=== PATIENT | male | born 1995 | race Two or more races ===

== ENCOUNTER 2016-07-26 18:34 | Emergency (ER) | payer OTHER ==
[2016-07-26] MEDS ORDERED: DIPH/PERTUSS(ACELL)/TETANUS VAC/PF 0.5 ML SYR (>=10YO) IM ONE (20:30)
--- NOTE | 2016-07-26 20:30 | ER Document Report ---
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 Tetanus not current. I have greeted and performed a rapid initial assessment of this patient. A comprehensive ED assessment, evaluation of the patient, analysis of test results , and completion of the medical decision making process will be conducted by additional ED providers. - Related Data Allergies/Adverse Reactions: No Known Allergies Allergy (Verified 07/26/16 20:27) Physical Exam - Vital signs Vitals: Temp Pulse Resp BP Pulse Ox 98.0 F 56 L 20 140/62 H 100 07/26/16 19:11 07/26/16 19:11 07/26/16 19:11 07/26/16 19:11 07/26/16 19:11 Course - Vital Signs Vital signs: Temp Pulse Resp BP Pulse Ox 98.0 F 56 L 20 140/62 H 100 07/26/16 19:11 07/26/16 19:11 07/26/16 19:11 07/26/16 19:11 07/26/16 19:11
[2016-07-26] MEDS ORDERED: LIDOCAINE 1% INJ-PF (10 MG/ML) 30 ML SDV INJ ONE (22:25)
[2016-07-26] MEDS ORDERED: HYDROCODONE/ACETAMINOPHEN 5-325 MG TABLET PO ONE (22:28)
--- NOTE | 2016-07-26 22:28 | ER Document Report ---
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 Patient cut his right thumb on the lid. Associated Symptoms: Other - Thumb laceration Exacerbated by: Movement Relieved by: Denies Similar symptoms previously: Yes Recently seen / treated by doctor: No - ROS ROS below otherwise negative: Yes Systems Reviewed and Negative: Yes All other systems reviewed and negative - CONSTITUTIONAL Constitutional: DENIES: Fever - MUSCULOSKELETAL Musculoskeletal: REPORTS: Extremity pain - Right thumb - DERM Skin Color: Normal Skin Problems: Laceration Past Medical History - General Information source: Patient - Social History Smoking Status: Never Smoker Chew tobacco use (# tins/day): No Frequency of alcohol use: Occasional Drug Abuse: None Occupation: food service attendant Lives with: Family Family History: Reviewed & Not Pertinent Patient has suicidal ideation: No Patient has homicidal ideation: No - Medical History Medical History: Negative Renal/ Medical History: Denies: Hx Peritoneal Dialysis Surgical Hx: Negative Vertical Provider Document - CONSTITUTIONAL Agree With Documented VS: Yes Exam Limitations: No Limitations General Appearance: WD/WN, No Apparent Distress - INFECTION CONTROL TRAVEL OUTSIDE OF THE [place] IN LAST 30 DAYS: No - HEENT HEENT: Atraumatic, Normocephalic - NECK Neck: Normal Inspection - RESPIRATORY Respiratory: No Respiratory Distress O2 Sat by Pulse Oximetry: 100 - CARDIOVASCULAR Pulses: Normal: Radial - MUSCULOSKELETAL/EXTREMETIES Musculoskeletal/Extremeties: MAEW, FROM - NEURO Level of Consciousness: Awake, Alert, Appropriate Motor/Sensory: No Motor Deficit - DERM Integumentary: Warm, Dry, Laceration - Laceration to the pad of right thumb, no active bleeding Course - Vital Signs Vital signs: Temp Pulse Resp BP Pulse Ox 98.0 F 56 L 20 140/62 H 100 07/26/16 19:11 07/26/16 19:11 07/26/16 19:11 07/26/16 19:11 07/26/16 19:11 Procedures - Laceration/Wound Repair Right Thumb Wound length (cm): 2.5 Wound's Depth, Shape: Irregular Laceration pre-procedure: Chloraprep applied Anesthetic type: 1% Lidocaine Wound explored: Clean, No foreign body removed Wound Repaired With: Sutures Suture Size/Type: 5:0, Nylon Number of Sutures: 8 Layer Closure?: No Post-procedure wound care: Sterile dressing applied Post-procedure NV exam normal: Yes Complications: No Discharge - Discharge Clinical Impression: Thumb laceration Qualifiers: Encounter type: initial encounter Laterality: right Qualified Code(s): S61.011A - Laceration without foreign body of right thumb without damage to nail , initial encounter Condition: Stable Disposition: HOME, SELF-CARE Instructions: Oral Narcotic Medication ([facility]), Tetanus Immunization Given ([facility]) , Laceration Care ([facility]), Dressing Instructions for Open Wounds ([facility]) Additional Instructions: Return immediately for any new or worsening symptoms Followup with your primary care provider, call tomorrow to make a followup appointment Suture removal in 10 days Follow-up with your Workmen's Compensation provider tomorrow Prescriptions: Hydrocodone/Acetaminophen [[place] 5-325 Tablet] 1 each PO Q4 PRN #10 tablet PRN Reason: Forms: Return to Work Referrals: [facility] [Provider Group] - Follow up as needed
[2016-07-26 23:55] VITALS: BP 136/66
== END 2016-07-26 23:40 | disposition home or self-care (01) ==
LOC: EDBD → ER 18:34
PROC: 0HQFXZZ Repair Right Hand Skin, External Approach (ICD-10-PCS; principal; 2016-07-26)
DX: S61.011A Laceration without foreign body of right thumb without damage to nail, initial encounter (principal); W45.8XXA Other foreign body or object entering through skin, initial encounter; Y93.89 Activity, other specified; Y99.0 Civilian activity done for income or pay; M79.644 Pain in right finger(s)
CPT/HCPCS: 99282; 90471; 90715; 12001; J3490

== ENCOUNTER 2016-10-13 10:52 | Emergency (ER) | payer OTHER ==
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
[2016-10-13] MEDS ORDERED: ONDANSETRON HCL INJ/PF 4 MG/2 ML SDV IV ONE (11:23)
[2016-10-13] MEDS ORDERED: MORPHINE SULFATE 10 MG/ML INJ IV ONE (11:23)
[2016-10-13 12:09] LABS: ABSOLUTE EOSINOPHILS # (AUTO) 0.3 10^3/uL (0.0-0.6); ABSOLUTE LYMPHOCYTES (AUTO) 1.7 10^3/uL (0.5-4.7); ABSOLUTE MONOCYTES (AUTO) 0.6 10^3/uL (0.1-1.4); ABSOLUTE NEUT (AUTO) 3.5 10^3/uL (1.7-8.2); BASOPHILS % (AUTO) 0.6 % (0-2); EOSINOPHILS % (AUTO) 4.9 % (0-6); HEMATOCRIT 44.4 % (37.9-51.0); HEMOGLOBIN 14.9 g/dL (13.5-17.0); HGB HCT DIFFERENCE 0.3; LYMPHOCYTES % (AUTO) 27.6 % (13-45); MEAN CORPUSCULAR HGB CONC 33.5 g/dL (32.0-36.0); MEAN CORPUSCULAR VOLUME 90 fl (80-97); RED BLOOD COUNT 4.95 10^6/uL (4.35-5.55); RED CELL DISTRIBUTION WIDTH 13.4 % (11.5-14.0); SEGMENTED NEUTROPHILS % (AUTO) 56.9 % (42-78); WHITE BLOOD COUNT 6.1 10^3/uL (4.0-10.5)
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
[2016-10-13 12:32] LABS: ALANINE AMINOTRANSFERASE 28 U/L (21-72); ALBUMIN 4.4 g/dL (3.5-5.0); ALKALINE PHOSPHATASE 77 U/L (38-126); ANION GAP 12 (5-19); ASPARTATE AMINO TRANSFERASE 24 U/L (17-59); BILIRUBIN,DIRECT 0.3 mg/dL (0.0-0.4); BILIRUBIN,TOTAL 0.6 mg/dL (0.2-1.3); BLOOD UREA NITROGEN 21 mg/dL (7-20); CARBON DIOXIDE 29 mmol/L (22-30); CHLORIDE 102 mmol/L (98-107); CREATININE RESULT 1.24 mg/dL (0.52-1.25); GLUCOSE 82 mg/dL (75-110); SODIUM 142.6 mmol/L (137-145); TOTAL PROTEIN 7.1 g/dL (6.3-8.2)
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
[2016-10-13] MEDS ORDERED: CEFTRIAXONE INJ 500 MG VIAL IM ONE (12:42)
[2016-10-13] MEDS ORDERED: LIDOCAINE 1% INJ-PF (10 MG/ML) 30 ML SDV INFIL ONE (12:42)
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
[2016-10-13 13:03] LABS: APPEARANCE,URINE CLEAR; BILIRUBIN,URINE NEGATIVE (NEGATIVE); GLUCOSE, URINE NEGATIVE (NEGATIVE); KETONES,URINE NEGATIVE (NEGATIVE); LEUKOCYTE ESTERASE,URINE NEGATIVE (NEGATIVE); NITRITE,URINE NEGATIVE (NEGATIVE); PROTEIN,URINE NEGATIVE (NEGATIVE); URINE SPECIFIC GRAVITY 1.035; UROBILINOGEN,URINE NEGATIVE mg/dL (<2.0)
[2016-10-13 13:53] LABS: ADD HIVPANEL? NO; HIV (1 AND 2) ANTIBODY NEGATIVE (NEGATIVE)
[2016-10-13] MEDS ORDERED: AZITHROMYCIN 250 MG TABLET PO ONE (14:00)
[2016-10-13 14:51] VITALS: BP 113/50
[2016-10-13 16:08] LABS: CHLAM PCR DETECTED (NOT DETECT)
== END 2016-10-13 14:51 | disposition home or self-care (01) ==
LOC: ER 10:52
DX: S20.212A Contusion of left front wall of thorax, initial encounter (principal); S39.92XA Unspecified injury of lower back, initial encounter; S16.1XXA Strain of muscle, fascia and tendon at neck level, initial encounter; A74.9 Chlamydial infection, unspecified; M54.9 Dorsalgia, unspecified; M54.2 Cervicalgia; R07.89 Other chest pain; R10.10 Upper abdominal pain, unspecified; V87.7XXA Person injured in collision between other specified motor vehicles (traffic), initial encounter
CPT/HCPCS: 99284; 96372; 96374; 96375; 36415; 85025; 86592; 80053; 81001; 86701; 87491; 87591; 71260; 72125; 74177; J3490; J2270; J0696; J2405

== ENCOUNTER 2017-06-13 10:21 | Emergency (ER) | payer OTHER ==
[2017-06-13 10:34] VITALS: BP 119/48
[2017-06-13] MEDS ORDERED: DEXAMETHASONE SOD PHOS INJ 10 MG/1 ML VIAL IM ONE (10:42)
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
== END 2017-06-13 11:20 | disposition home or self-care (01) ==
LOC: ER 10:21
DX: J02.9 Acute pharyngitis, unspecified (principal); J35.1 Hypertrophy of tonsils; J34.89 Other specified disorders of nose and nasal sinuses
CPT/HCPCS: 99283; 96372; 87070; 87880; J1100

== ENCOUNTER 2018-01-20 19:19 | Emergency (ER) | payer OTHER ==
[2018-01-20 19:34] VITALS: BP 133/61
--- NOTE | 2018-01-20 19:59 | ER Document Report ---
ED Dizziness/Weakness - General Chief Complaint: Passed Out Prior to Arrival Stated Complaint: POSSIBLE SYNCOPE Time Seen by Provider: 01/20/18 19:55 Mode of Arrival: Ambulatory Information source: Patient Notes: Chief complaint: Syncope History of complain:( obtained from----patient) 22 years old male was drinking up to a year because he got from his fiance, drank about 6 drinks of hard liquor and briefly tumbled and lost consciousness subsequently was brought to the ED. He is feeling fine now has no symptoms denies any head injury nail denies any headache denies any focal weakness numbness tingling sensation. Denies any neck pain neck stiffness chest pain or abdominal pain. Onset: As above Duration: Just prior to arrival Severity: Mild not applicable Quality: Not applicable Context: As above Exacerbating factor and relieving factors: As above REVIEW OF SYSTEMS: CONSTITUTIONAL : Denies fever, chills, or sweats. Denies recent illness. EENT: Denies eye, ear, throat, or mouth pain or symptoms. Denies nasal or sinus congestion or discharge. Denies throat, tongue, or mouth swelling or difficulty swallowing. CARDIOVASCULAR: Denies chest pain. Denies palpitations or racing or irregular heart beat. Denies ankle edema. RESPIRATORY: Denies cough, cold, or chest congestion. Denies shortness of breath, difficulty breathing, or wheezing. GASTROINTESTINAL: Denies distention. Denies nausea, vomiting, or diarrhea. Denies blood in vomitus, stools, or per rectum. Denies black, tarry stools. Denies constipation. GENITOURINARY: Denies difficulty urinating, painful urination, burning, frequency, blood in urine, or discharge. FEMALE GENITOURINARY: Denies vaginal bleeding, heavy or abnormal periods, irregular periods. Denies vaginal discharge or odor. MUSCULOSKELETAL: Denies back or neck pain or stiffness. Denies joint pain or swelling. SKIN: Denies rash, lesions or sores. HEMATOLOGIC : Denies easy bruising or bleeding. LYMPHATIC: Denies swollen, enlarged glands. NEUROLOGICAL: Denies confusion or altered mental status. Denies passing out or loss of consciousness. Denies dizziness or lightheadedness. Denies headache. Denies weakness or paralysis or loss of use of either side. Denies problems with gait or speech. Denies sensory loss, numbness, or tingling. Denies seizures. PSYCHIATRIC: Denies anxiety or stress. Denies depression, suicidal ideation, or homicidal ideation. ALL OTHER SYSTEMS REVIEWED AND NEGATIVE. PHYSICAL EXAMINATION: GENERAL: Well-appearing, well-nourished and in no acute distress. Alert and oriented 3 HEAD: Atraumatic, normocephalic. EYES: Pupils equal round and reactive to light, extraocular movements intact, conjunctiva are normal. ENT: Nares patent, oropharynx clear without exudates. Moist mucous membranes. NECK: Normal range of motion, supple without lymphadenopathy LUNGS: Breath sounds clear to auscultation bilaterally and equal. No wheezes rales or rhonchi. HEART: Regular rate and rhythm without murmurs ABDOMEN: Soft, nontender, nondistended abdomen. No guarding, no rebound. No masses appreciated. Examination of genitals-deferred Musculoskeletal: Normal range of motion, no pitting or edema. No cyanosis. NEUROLOGICAL: Cranial nerves grossly intact. Normal speech, normal gait. Normal sensory, motor exams PSYCH: Normal mood, normal affect. SKIN: Warm, Dry, normal turgor, no rashes or lesions noted. Dictation was performed using [employer] voice recognition software TRAVEL OUTSIDE OF THE [place] IN LAST 30 DAYS: No - HPI Notes: Dictated - Related Data Allergies/Adverse Reactions: No Known Allergies Allergy (Verified 06/13/17 10:22) Past Medical History - Social History Smoking Status: Current Every Day Smoker Cigarette use (# per day): No Chew tobacco use (# tins/day): No Frequency of alcohol use: Heavy Drug Abuse: None Lives with: Family Family History: Reviewed & Not Pertinent Renal/ Medical History: Denies: Hx Peritoneal Dialysis - Immunizations Hx Diphtheria, Pertussis, Tetanus Vaccination: Yes - given today Review of Systems - Review of Systems Notes: Dictated Physical Exam - Vital signs Vitals: Temp Pulse Resp BP Pulse Ox 97.9 F 77 20 133/61 H 100 01/20/18 19:32 01/20/18 19:32 01/20/18 19:32 01/20/18 19:32 01/20/18 19:32 - Notes Notes: Dictated Course - Vital Signs Vital signs: Temp Pulse Resp BP Pulse Ox 97.9 F 77 20 133/61 H 100 01/20/18 19:32 01/20/18 19:32 01/20/18 19:32 01/20/18 19:32 01/20/18 19:32 Discharge - Discharge Clinical Impression: ETOH abuse, Pre-syncope Condition: Fair Disposition: HOME, SELF-CARE Instructions: Near Syncopal Episode ([facility]), Syncopal Episode ([facility])
== END 2018-01-20 20:10 | disposition home or self-care (01) ==
LOC: ER 19:19
DX: R55 Syncope and collapse (principal); F10.10 Alcohol abuse, uncomplicated; F17.200 Nicotine dependence, unspecified, uncomplicated
CPT/HCPCS: 99284

== ENCOUNTER → 2018-03-14 | Outpatient (CLI) | payer SELFPAY ==
--- NOTE | 2018-03-14 18:35 | RADIOLOGY REPORT (SQ) ---
EXAM DESCRIPTION: MRI LUMBAR SPINE WITHOUT COMPLETED DATE/TIME: 03/14/2018 5:31 pm REASON FOR STUDY: RADICULOPATHY,LUMBAR REGION S83.206A UNSP TEAR OF UNSP MENISCUS, CURRENT INJURY, RIGHT K M54.16 RADICULOPATHY, LUMBAR REGION M54.14 RADICULOPATHY, THORACIC REGION COMPARISON: None. TECHNIQUE: Sagittal and Axial imaging includes T1, T2, STIR and gradient echo sequences. Coronal T2/ HASTE imaging. LIMITATIONS: Motion artifact, particularly on the axial images. FINDINGS: VISUALIZED UPPER ABDOMEN: Limited evaluation. No acute or suspicious findings suggested. SEGMENTATION: No transitional anatomy. The lowest well-developed disc space is labeled L5-S1. ALIGNMENT: Anatomic. VERTEBRAE: Intact. BONE MARROW: Normal. No marrow replacement or reactive changes. DISC SIGNAL: Normal. No significant abnormal signal or loss of height. POSTERIOR ELEMENTS: Generally intact. No pars defect evident. HARDWARE: None in the spine. CORD AND CONUS: Normal in size and signal intensity. Conus at the appropriate level. SOFT TISSUES: No aortic aneurysm seen. No bulky retroperitoneal adenopathy or mass. No paraspinal mas s or fluid. L1-L2: No significant spinal stenosis or exit foraminal stenosis. L2-L3: No significant spinal stenosis or exit foraminal stenosis. L3-L4: No significant spinal stenosis or exit foraminal stenosis. L4-L5: Left side asymmetric disc bulge with increased signal in the posterior annulus. Left lateral recess stenosis. L5-S1: No significant spinal stenosis or exit foraminal stenosis. LOWER THORACIC: Incompletely imaged. No stenosis seen. SACRUM: Visualized upper sacrum intact. OTHER: No other significant findings. IMPRESSION: LEFT-SIDED ASYMMETRIC DISC BULGE AT L4-L5 WITH LEFT LATERAL RECESS STENOSIS. INCREASED SIGNAL IN THE POSTERIOR ANNULUS LIKELY DUE TO AN ANNULAR FISSURE. TECHNICAL DOCUMENTATION: JOB ID: [id number] [employer]- All Rights Reserved Reading location - IP/workstation name: [email or web address]
--- NOTE | 2018-03-14 18:37 | RADIOLOGY REPORT (SQ) ---
EXAM DESCRIPTION: MRI THORACIC SPINE WITHOUT COMPLETED DATE/TIME: 03/14/2018 5:31 pm REASON FOR STUDY: RADICULOPATHY,THORACIC REGION S83.206A UNSP TEAR OF UNSP MENISCUS, CURRENT INJURY , RIGHT K M54.16 RADICULOPATHY, LUMBAR REGION M54.14 RADICULOPATHY, THORACIC REGION COMPARISON: None. TECHNIQUE: Sagittal imaging includes T1, T2, STIR and gradient echo sequences. LIMITATIONS: Study limited due to motion artifact. Axial images not acquired due to patient discomf ort. FINDINGS: LOCALIZER: No worrisome findings. ALIGNMENT: Normal. VERTEBRAE: Intact. BONE MARROW: Normal. No marrow replacement or reactive changes. HARDWARE: None in the spine. CORD: Normal in size and signal intensity. SOFT TISSUES: No soft tissue masses. THORACIC DISCS T1-T12: No significant spinal stenosis or exit foraminal stenosis. LOWER CERVICAL: Incompletely imaged. No significant spinal stenosis or exit foraminal stenosis. UPPER LUMBAR: Incompletely imaged. No significant spinal stenosis or exit foraminal stenosis. OTHER: No other significant finding. IMPRESSION: LIMITED STUDY. NO GROSS ABNORMAL FINDINGS. TECHNICAL DOCUMENTATION: JOB ID: [id number] [employer]- All Rights Reserved Reading location - IP/workstation name: [email or web address]
== END ==
LOC: RAD 16:01
PROVIDERS: ATTEND Physician Assistant
DX: S83.206A Unspecified tear of unspecified meniscus, current injury, right knee, initial encounter (principal); X58.XXXA Exposure to other specified factors, initial encounter; M54.16 Radiculopathy, lumbar region; M54.14 Radiculopathy, thoracic region
CPT/HCPCS: 72146; 72148

== ENCOUNTER 2018-03-22 14:29 | Emergency (ER) | payer OTHER ==
[2018-03-22 15:32] VITALS: BP 130/62
--- NOTE | 2018-03-22 15:40 | ER Document Report ---
HPI - HPI Patient complains to provider of: Right knee pain Onset: Other - 10 days Onset/Duration: Persistent Quality of pain: Achy, Sharp Pain Level: 5 Context: Patient states that he was unloading concrete and his foot got stuck in a wood pallet, patient states that he had back pain and right knee pain. Patient did see his Workmen's Compensation provider and had an MRI performed of the back. Patient states he was supposed to have an MRI of the knee as well but he could not tolerate the pain sitting in the MRI machine for that long. Patient denies any new injury to the knee. Patient states that his brace does not feel comfortable that he was provided with. Patient states that his estate planning attorney advised him to come here because he was having continued knee pain. Patient feels like he is not moving forward with his workman's compensation provider. Associated Symptoms: Other - Right knee pain Exacerbated by: Standing, Movement, Walking Relieved by: Denies Similar symptoms previously: No Recently seen / treated by doctor: Yes - ROS ROS below otherwise negative: Yes Systems Reviewed and Negative: Yes All other systems reviewed and negative - CONSTITUTIONAL Constitutional: DENIES: Fever, Chills - NEURO Neurology: DENIES: Weakness - GASTROINTESTINAL Gastrointestinal: DENIES: Nausea - MUSCULOSKELETAL Musculoskeletal: REPORTS: Extremity pain - R knee - DERM Skin Color: Normal Skin Problems: None Past Medical History - General Information source: Patient - Social History Smoking Status: Never Smoker Chew tobacco use (# tins/day): No Frequency of alcohol use: None Drug Abuse: None Family History: Reviewed & Not Pertinent Patient has suicidal ideation: No Patient has homicidal ideation: No - Medical History Medical History: Negative Renal/ Medical History: Denies: Hx Peritoneal Dialysis Surgical Hx: Negative - Immunizations Hx Diphtheria, Pertussis, Tetanus Vaccination: Yes - given today Vertical Provider Document - CONSTITUTIONAL Agree With Documented VS: Yes Exam Limitations: No Limitations General Appearance: WD/WN, No Apparent Distress - INFECTION CONTROL TRAVEL OUTSIDE OF THE [place] IN LAST 30 DAYS: No - HEENT HEENT: Atraumatic, Normocephalic - NECK Neck: Normal Inspection - RESPIRATORY Respiratory: No Respiratory Distress - CARDIOVASCULAR Pulses: Normal: Dorsalis pedis - MUSCULOSKELETAL/EXTREMETIES Musculoskeletal/Extremeties: MAEW, Tender - Right knee joint tenderness to anterior compartment, no laxity with varus or valgus maneuvers. Patellar tendon intact. No joint effusion. Normal skin color and temperature overlying joint. negative: Eccymosis - NEURO Level of Consciousness: Awake, Alert, Appropriate Motor/Sensory: No Motor Deficit - DERM Integumentary: Warm, Dry Course - Re-evaluation Re-evalutation: 03/22/18 15:34 Called and spoke with hospital technician who states that patient can simply call the scheduling department to reschedule his MRI of the knee that he was to have had performed. Review controlled substance database. Patient not found in the controlled substance database under the correct spelling of his first name CELSO. Patient 's name was found with the spelling of the TAMANNA. - Vital Signs Vital signs: Temp Pulse Resp BP Pulse Ox 98.2 F 67 16 130/62 H 96 03/22/18 15:29 03/22/18 15:29 03/22/18 15:29 03/22/18 15:29 03/22/18 15:29 - Diagnostic Test Radiology reviewed: Reports reviewed - Reviewed patient's MRI report that he had with him of his T-spine and L-spine. Patient with noted bulging disc to the L4-L5 area on his lumbar spine report. MRI was performed on 03/14/2018 Procedures - Immobilization Right Knee Pre-Proc Neuro Vasc Exam: Normal Immobilizer type: Knee immobilizer Performed by: PCT Post-Proc Neuro Vasc Exam: Normal Alignment checked and good: Yes Discharge - Discharge Clinical Impression: Right knee sprain Qualifiers: Encounter type: initial encounter Involved ligament of knee: unspecified ligament Qualified Code(s): S83.91XA - Sprain of unspecified site of right knee , initial encounter Condition: Stable Disposition: HOME, SELF-CARE Instructions: Use of Crutches ([facility]), Ice & Elevation ([facility]), Suspected Internal Knee Injury ([facility]), Knee Immobilizing Splint ([facility]), Oral Narcotic Medication ([facility] ), Sprained Knee ([facility]) Additional Instructions: Return immediately for any new or worsening symptoms Followup with your Workmen's Compensation care provider, call tomorrow to make a followup appointment. Your Workmen's Compensation provider can provide you with your medical clearance to return to work or to continue to stay out of work. Follow-up with an orthopedic provider for further evaluation, call tomorrow for an appointment Call the radiology department outsole scheduler to reschedule your MRI of the knee. Their phone number is [phone] Prescriptions: Hydrocodone/Acetaminophen [[place] 5-325 mg Tablet] 1 tab PO Q6 PRN #15 tablet PRN Reason: Forms: Special Work Note Referrals: AARON CASTELLANOS PA-C [COMMUNITY BASED STAFF] - Follow up tomorrow [facility] [Provider Group] - Follow up as needed
== END 2018-03-22 15:49 | disposition home or self-care (01) ==
LOC: ER 14:29
DX: S83.91XA Sprain of unspecified site of right knee, initial encounter (principal); M25.561 Pain in right knee; X50.1XXA Overexertion from prolonged static or awkward postures, initial encounter; Y93.89 Activity, other specified; Y99.0 Civilian activity done for income or pay; M51.86 Other intervertebral disc disorders, lumbar region
CPT/HCPCS: 99283; L1830

== ENCOUNTER 2018-09-18 10:45 | Emergency (ER) | payer SELFPAY ==
[2018-09-18 10:56] VITALS: BP 121/75
[2018-09-18] MEDS ORDERED: FAMOTIDINE 20 MG TABLET PO ONE (12:54)
[2018-09-18] MEDS ORDERED: DEXAMETHASONE SOD PHOS INJ 10 MG/1 ML VIAL IM ONE (12:54)
--- NOTE | 2018-09-18 13:11 | ER Document Report ---
Addendum entered and electronically signed by HANG SUTHERLAND FNP 10/02/18 21:30: Course - Re-evaluation Re-evalutation: 10/02/18 21:30 Clarification of documentation: Patient has cellulitis to bilateral hands. - Vital Signs Vital signs: Temp Pulse Resp BP Pulse Ox 98.0 F 70 16 121/75 99 09/18/18 13:18 09/18/18 13:18 09/18/18 13:18 09/18/18 13:18 09/18/18 13:18 Addendum entered and electronically signed by HANG SUTHERLAND FNP 10/02/18 21:30: Discharge - Discharge Clinical Impression: Cellulitis Qualifiers: Site of cellulitis: extremity Site of cellulitis of extremity: upper extremity Laterality: unspecified laterality Qualified Code(s): L03.119 - Cellulitis of unspecified part of limb Condition: Stable Disposition: HOME, SELF-CARE Additional Instructions: The rash is likely due to infection of your skin. You need to take the antibiotics as prescribed. Do not stop even if the rash goes away until you have completed all the antibiotics. The area of redness was traced out here in the emergency department with a marking pen. You need to return to emergency department if the redness spreads outside of this area by more than 2 cm in any direction. You should also return if you develop fevers with temperature greater than 101, persistent vomiting, worsening pain, or have any other symptoms that are concerning to you. Take Benadryl 50 mg every 6 hours as needed for itchiness. Please also take Pepcid 20 mg twice a day while your symptoms persist. Prescriptions: Cephalexin Monohydrate [Keflex 500 mg Capsule] 500 mg PO Q6H 7 Days #28 capsule Referrals: LOCALMD,NO [Primary Care Provider] - Follow up as needed Original Note: HPI - HPI Time Seen by Provider: 09/18/18 11:49 Pain Level: 4 Context: Patient is a 23-year-old male who presents emergency department with a chief complaint of itchy, burning hands. He states that he has had his symptoms for the past 3 days. Admits to scratching his hands with his nails. He took Benadryl at home, but had little relief. Denies any fever, body aches, or any other symptoms. Denies any past medical history or allergies. He states that he used some new hand soap on Tuesday, but did not have symptoms until Tuesday. - CONSTITUTIONAL Constitutional: DENIES: Fever, Chills - EENT EENT: DENIES: Sore Throat - NEURO Neurology: DENIES: Headache - CARDIOVASCULAR Cardiovascular: DENIES: Chest pain - RESPIRATORY Respiratory: DENIES: Trouble Breathing, Coughing - GASTROINTESTINAL Gastrointestinal: DENIES: Abdominal Pain - MUSCULOSKELETAL Musculoskeletal: DENIES: Extremity pain - DERM Skin Color: Normal Skin Problems: None, Rash Past Medical History - Social History Smoking Status: Never Smoker Chew tobacco use (# tins/day): No Frequency of alcohol use: Occasional Drug Abuse: None Family History: Reviewed & Not Pertinent Patient has suicidal ideation: No Patient has homicidal ideation: No Renal/ Medical History: Denies: Hx Peritoneal Dialysis - Immunizations Hx Diphtheria, Pertussis, Tetanus Vaccination: Yes - given today Vertical Provider Document - CONSTITUTIONAL Agree With Documented VS: Yes Exam Limitations: No Limitations General Appearance: No Apparent Distress - INFECTION CONTROL TRAVEL OUTSIDE OF THE [place] IN LAST 30 DAYS: No - HEENT HEENT: Atraumatic, Normocephalic - RESPIRATORY Respiratory: Breath Sounds Normal, No Respiratory Distress - CARDIOVASCULAR Pulses: Normal: Radial - MUSCULOSKELETAL/EXTREMETIES Musculoskeletal/Extremeties: FROM - NEURO Level of Consciousness: Awake, Alert, Appropriate Motor/Sensory: No Motor Deficit, No Sensory Deficit - DERM Integumentary: Warm, Dry, Rash - Bilateral hands Course - Re-evaluation Re-evalutation: 09/18/18 13:11 Patient stated that he had been scratching his hands, I am concerned for a possible cellulitis. He will be started on Keflex. I have also instructed him on Benadryl and Pepcid use. He received a dose of Decadron here in the emergency department. I have instructed him on monitoring the redness. I do not suspect necrotizing fasciitis, or any life-threatening etiology at this time. Verbal discharge instructions were given to the patient. They verbalized understanding. They are stable for discharge. - Vital Signs Vital signs: Temp Pulse Resp BP Pulse Ox 97.8 F 71 16 121/75 98 09/18/18 10:54 09/18/18 10:54 09/18/18 10:54 09/18/18 10:54 09/18/18 10:54 Discharge - Discharge Clinical Impression: Cellulitis Qualifiers: Site of cellulitis: other site Qualified Code(s): L03.818 - Cellulitis of other sites Condition: Stable Disposition: HOME, SELF-CARE Additional Instructions: The rash is likely due to infection of your skin. You need to take the antibiotics as prescribed. Do not stop even if the rash goes away until you have completed all the antibiotics. The area of redness was traced out here in the emergency department with a marking pen. You need to return to emergency department if the redness spreads outside of this area by more than 2 cm in any direction. You should also return if you develop fevers with temperature greater than 101, persistent vomiting, worsening pain, or have any other symptoms that are concerning to you. Take Benadryl 50 mg every 6 hours as needed for itchiness. Please also take Pepcid 20 mg twice a day while your symptoms persist. Prescriptions: Cephalexin Monohydrate [Keflex 500 mg Capsule] 500 mg PO Q6H 7 Days #28 capsule Referrals: LOCALMD,NO [Primary Care Provider] - Follow up as needed
== END 2018-09-18 13:18 | disposition home or self-care (01) ==
LOC: ER 10:45
DX: L03.114 Cellulitis of left upper limb (principal); L03.113 Cellulitis of right upper limb
CPT/HCPCS: 99283; 96372; J1100

== ENCOUNTER 2018-11-14 08:24 | Emergency (ER) | payer SELFPAY ==
[2018-11-14] MEDS ORDERED: AMOXICILLIN TR/POT CLAVULANATE 500-125 MG TAB PO ONE (09:31)
[2018-11-14] MEDS ORDERED: IBUPROFEN 800 MG TABLET PO ONE (09:31)
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
[2018-11-14 10:04] VITALS: BP 128/75
== END 2018-11-14 10:04 | disposition home or self-care (01) ==
LOC: ER 08:24
DX: S41.052A Open bite of left shoulder, initial encounter (principal); Y04.1XXA Assault by human bite, initial encounter; S10.91XA Abrasion of unspecified part of neck, initial encounter; Y04.8XXA Assault by other bodily force, initial encounter; Y93.89 Activity, other specified; Y92.009 Unspecified place in unspecified non-institutional (private) residence as the place of occurrence of the external cause
CPT/HCPCS: 99283

== ENCOUNTER 2020-03-27 13:46 | Emergency (ER) | payer OTHER ==
[2020-03-27 13:51] VITALS: BP 127/48
[2020-03-27] MEDS ORDERED: ACETAMINOPHEN 325 MG TABLET PO ONE (14:40)
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
[2020-03-27] MEDS ORDERED: ACETAMINOPHEN 325 MG TABLET ONE (14:45)
--- NOTE | 2020-03-27 15:26 | RADIOLOGY REPORT (SQ) ---
EXAM DESCRIPTION: L SPINE WHOLE IMAGES COMPLETED DATE/TIME: 03/27/2020 3:16 pm REASON FOR STUDY: Low back pain times a week from lifting weights COMPARISON: None. NUMBER OF VIEWS: Five views including obliques. TECHNIQUE: AP, lateral, oblique, and sacral radiographic images acquired of the lumbar spine. LIMITATIONS: None. FINDINGS: MINERALIZATION: Normal. SEGMENTATION: Normal. No transitional anatomy. ALIGNMENT: Normal. VERTEBRAE: Maintained height. No fracture or worrisome bone lesion. DISCS: Preserved height. No significant osteophytes or end plate irregularity. POSTERIOR ELEMENTS: Pedicles and facets are intact. No pars defect or posterior arch defects. HARDWARE: None in the spine. PARASPINAL SOFT TISSUES: Normal. PELVIS: Intact as visualized. No fractures or worrisome bone lesions. SI joints intact. OTHER: No other significant finding. IMPRESSION: 1. No acute osseous findings. TECHNICAL DOCUMENTATION: JOB ID: [id number] 2010 [employer]- All Rights Reserved Reading location - IP/workstation name: [email or web address]
--- NOTE | 2020-03-27 15:27 | RADIOLOGY REPORT (SQ) ---
EXAM DESCRIPTION: ANKLE RIGHT COMPLETE IMAGES COMPLETED DATE/TIME: 03/27/2020 3:16 pm REASON FOR STUDY: Right foot and ankle pain. COMPARISON: None. NUMBER OF VIEWS: Three views. TECHNIQUE: AP, lateral, and oblique radiographic images acquired of the right ankle. LIMITATIONS: None. FINDINGS: MINERALIZATION: Normal. BONES: No acute fracture or dislocation. No worrisome bone lesions. JOINTS: No effusions. SOFT TISSUES: No soft tissue swelling. No foreign body. OTHER: No other significant finding. IMPRESSION: 1. No acute osseous findings. TECHNICAL DOCUMENTATION: JOB ID: [id number] 2010 [employer]- All Rights Reserved Reading location - IP/workstation name: [email or web address]
--- NOTE | 2020-03-27 15:28 | RADIOLOGY REPORT (SQ) ---
EXAM DESCRIPTION: FOOT RIGHT COMPLETE IMAGES COMPLETED DATE/TIME: 03/27/2020 3:16 pm REASON FOR STUDY: Right foot and ankle pain COMPARISON: None. NUMBER OF VIEWS: Three views. TECHNIQUE: AP, lateral and oblique radiographic images acquired of the right foot. LIMITATIONS: None. FINDINGS: MINERALIZATION: Normal. BONES: No acute fracture or dislocation. No worrisome bone lesions. JOINTS: No effusions. SOFT TISSUES: No soft tissue swelling. No foreign body. OTHER: No other significant finding. IMPRESSION: 1. NEGATIVE STUDY OF THE RIGHT FOOT. TECHNICAL DOCUMENTATION: JOB ID: [id number] 2010 [employer]- All Rights Reserved Reading location - IP/workstation name: [email or web address]
== END 2020-03-27 16:12 | disposition home or self-care (01) ==
LOC: ER 13:46
PROC: 2W3QX1Z Immobilization of Right Lower Leg using Splint (ICD-10-PCS; principal; 2020-03-27)
DX: S99.911A Unspecified injury of right ankle, initial encounter (principal); M25.571 Pain in right ankle and joints of right foot; M54.5 Low back pain; M79.671 Pain in right foot; X50.1XXA Overexertion from prolonged static or awkward postures, initial encounter; Y93.75 Activity, martial arts; J45.909 Unspecified asthma, uncomplicated
CPT/HCPCS: 72110; 99284

== ENCOUNTER 2020-05-21 06:52 | Emergency (ER) | payer SELFPAY ==
[2020-05-21 07:01] VITALS: BP 120/54
--- NOTE | 2020-05-21 08:15 | RADIOLOGY REPORT (SQ) ---
EXAM DESCRIPTION: KNEE LEFT 4 VIEW IMAGES COMPLETED DATE/TIME: 05/21/2020 7:38 am REASON FOR STUDY: INJURY COMPARISON: None. NUMBER OF VIEWS: Four views. TECHNIQUE: AP, lateral, and both oblique radiographic images acquired of the left knee. LIMITATIONS: None. FINDINGS: MINERALIZATION: Normal. BONES: No acute fracture or dislocation. No worrisome bone lesions. JOINT: No effusion. SOFT TISSUES: No soft tissue swelling. No radio-opaque foreign body. OTHER: No other significant finding. IMPRESSION: NEGATIVE STUDY OF THE LEFT KNEE. NO RADIOGRAPHIC EVIDENCE OF ACUTE INJURY. TECHNICAL DOCUMENTATION: JOB ID: [id number] 2010 [employer]- All Rights Reserved Reading location - IP/workstation name: [email or web address]
[2020-05-21] MEDS ORDERED: IBUPROFEN 600 MG TABLET PO ONE (09:12)
[2020-05-21] MEDS ORDERED: OXYCODONE-ACETAMINOPHEN 5-325 MG TABLET PO ONE (09:16)
--- NOTE | 2020-05-21 09:17 | ER Document Report ---
ED General - General Chief Complaint: Knee Injury Stated Complaint: KNEE INJURY Time Seen by Provider: 05/21/20 08:47 Primary Care Provider: KIRK FERRARI JR, DO [ACTIVE PROVISIONAL STAFF] - Follow up as needed Notes: Well-defined. Patient presents with left knee pain and swelling after a pivot injury where his foot stayed planted and he externally rotated his leg doing multi kick boxing. History of right-sided ACL tear. No numbness tingling on the left side. Taken Motrin to no avail and is still hurting. TRAVEL OUTSIDE OF THE [place] IN LAST 30 DAYS: No - Related Data Allergies/Adverse Reactions: No Known Allergies Allergy (Verified 05/21/20 07:08) Past Medical History - General Information source: Patient - Social History Smoking Status: Never Smoker Frequency of alcohol use: None Drug Abuse: None Family History: Reviewed & Not Pertinent Pulmonary Medical History: Reports: Hx Asthma Renal/ Medical History: Denies: Hx Peritoneal Dialysis Musculoskeletal Medical History: Reports Hx Musculoskeletal Deformity, Reports Hx Musculoskeletal Trauma Past Surgical History: Reports: Hx Orthopedic Surgery - Right acl repair - Immunizations Immunizations up to date: Yes Hx Diphtheria, Pertussis, Tetanus Vaccination: Yes - 2016 Review of Systems - Review of Systems Notes: REVIEW OF SYSTEMS GEN: Denies fever, chills, weight loss ENT: Denies sore throat, nasal discharge, ear pain EYES: Denies blurry vision, eye pain, discharge CV: Denies chest pain, palpitations, edema RESP: Denies cough, shortness of breath, wheezing GI: Denies abdominal pain, nausea, vomiting, diarrhea MSK: Knee pain SKIN: Denies rash, skin lesions LYMPH: Denies swollen glands/lymph nodes NEURO: Denies headache, focal weakness or numbness, dizziness PSYCH: Denies depression, suicidal or homicidal ideation PHYSICAL EXAMINATION General: No acute distress, well-nourished Head: Atraumatic, normocephalic ENT: Mouth normal, oropharynx moist, no exudates or tonsillar enlargement Eyes: Conjunctiva normal, pupils equal, lids normal Neck: No JVD, supple, no guarding CVS: Normal rate, regular rhythm, no murmurs Resp: No resp distress, equal and normal breath sounds bilaterally GI: Nondistended, soft, no tenderness to palpation, no rebound or guarding Ext: Left knee joint line tenderness on the lateral side with slight decreased full extension, no laxity in any direction negative anterior posterior drawer test, fibular head nontender distal circulation intact soft compartments e of motion in upper and lower ext Back: No CVA or midline TTP Skin: No rash, warm Lymphatic: No lymphadeopathy noted Neuro: Awake, alert. Face symmetric. GCS 15. Constitutional: No symptoms reported EENT: No symptoms reported Cardiovascular: No symptoms reported Respiratory: No symptoms reported Gastrointestinal: No symptoms reported Genitourinary: No symptoms reported Male Genitourinary: No symptoms reported Musculoskeletal: No symptoms reported Skin: No symptoms reported Hematologic/Lymphatic: No symptoms reported Neurological/Psychological: No symptoms reported Physical Exam - Vital signs Vitals: Temp Pulse Resp BP Pulse Ox 97.8 F 60 18 120/54 L 100 05/21/20 06:59 05/21/20 06:59 05/21/20 06:59 05/21/20 06:59 05/21/20 06:59 Course - Re-evaluation Re-evalutation: 05/21/20 12:14 Internal knee injury likely meniscus or ACL. No david laxity or instability to suggest dislocation. No circulatory compromise. Compartments soft. Knee immobilizer ice weightbearing as tolerated follow-up Ortho for PT Work note given I I have discussed with the patient there likely diagnosis, aftercare plan, follow-up plans and my usual and customary return precautions. They verbalized understanding of this. 05/21/20 12:15 - Vital Signs Vital signs: Temp Pulse Resp BP Pulse Ox 97.8 F 60 18 120/54 L 100 05/21/20 06:59 05/21/20 06:59 05/21/20 06:59 05/21/20 06:59 05/21/20 06:59 - Laboratory Results Critical Laboratory Results Reviewed: No Critical Results - Radiology Results Critical Radiology Results Reviewed: No Critical Results Discharge - Discharge Clinical Impression: Left ACL tear Qualifiers: Encounter type: initial encounter Qualified Code(s): S83.512A - Sprain of anterior cruciate ligament of left knee, initial encounter Condition: Good Disposition: HOME, SELF-CARE Instructions: Use of Crutches ([facility]), Suspected Internal Knee Injury ([facility]) Forms: Return to Work Referrals: KIRK FERRARI JR, DO [ACTIVE PROVISIONAL STAFF] - Follow up as needed
== END 2020-05-21 09:37 | disposition home or self-care (01) ==
LOC: ER 06:52
DX: S83.512A Sprain of anterior cruciate ligament of left knee, initial encounter (principal); X50.0XXA Overexertion from strenuous movement or load, initial encounter; Y93.71 Activity, boxing
CPT/HCPCS: 99283